=== PATIENT | female | born 1965 | race Caucasian/White ===

== ENCOUNTER 2019-07-25 07:43 | Day surgery (SDC) | payer OTHER ==
[2019-07-20 16:08] VITALS: BMI 23.9
[2019-07-25] MEDS ORDERED: PROPOFOL 20 ML ONE ×3 (08:13)
[2019-07-25 09:56] VITALS: TEMP 97.9
[2019-07-25 11:24] VITALS: BP 127/69; PULSE 70
== END 2019-07-25 10:30 | disposition home or self-care (01) ==
LOC: FASU-ENDO 07:43
PROVIDERS: ATTEND Internal Medicine Gastroenterology
PROC: 0DJD8ZZ Inspection of Lower Intestinal Tract, Via Natural or Artificial Opening Endoscopic (ICD-10-PCS; principal; 2019-07-25 09:26)
DX: Z12.11 Encounter for screening for malignant neoplasm of colon (principal); Z83.71 Family history of colonic polyps; K57.30 Diverticulosis of large intestine without perforation or abscess without bleeding

== ENCOUNTER 2020-05-16 05:16 | Emergency (ER) | payer OTHER ==
[2020-05-16 05:30] VITALS: BP 152/72; PULSE 73; TEMP 98.6; BMI 23.9
--- OUTSIDE RECORDS SUMMARY | 2020-05-16 05:33 | XMS ---
:1965 Author Organization [facility] Support Name Relationship Address Phone UE Unavailable Unavailable Unavailable [facility] Unavailable [address] [place] [address] MUSA GRANT [address] [phone] [place] [address] Re-disclosure Warning The records that you are about to access may contain information from federally- assisted alcohol or drug abuse programs. If such information is present, then the following federally mandated warning applies: This information has been disclosed to you from records protected by federal confidentiality rules (42 CFR part 2). The federal rules prohibit you from making any further disclosure of this information unless further disclosure is expressly permitted by the written consent of the person to whom it pertains or as otherwise permitted by 42 CFR part 2. A general authorization for the release of medical or other information is NOT sufficient for this purpose. The Federal rules restrict any use of the information to criminally investigate or prosecute any alcohol or drug abuse patient.The records that you are about to access may contain highly sensitive health information, the redisclosure of which is protected by Article 27-F of the [facility] Public Health law. If you continue you may haveaccess to information: Regarding HIV / AIDS; Provided by facilities licensed or operated by the [facility] Office of Mental Health; or Provided by the [facility] Office for People With Developmental Disabilities. If such information is present, then the following [facility] mandated warning applies: This information has been disclosed to you from confidential records which are protected by state law. State law prohibits you from making any further disclosure of this information without the specific written consent of the person to whom it pertains, or as otherwise permitted by law. Any unauthorized further disclosure in violation of state law may result in a fine or fci sentence or both. A general authorization for the release of medical or other information is NOT sufficient authorization for further disclosure. Insurance Providers Payer name Policy type Policy ID Covered Covered alliance party's Policy P florence / Coverage alliance party ID relationship to [employer] orm[employer] type [employer] EXCHANGE [id number] [facility] [id number] [facility]
[2020-05-16] MEDS ORDERED: KETOROLAC TROMETHAMINE 30 MG/1 ML VIAL IM ONE (05:52)
[2020-05-16] MEDS ORDERED: KETOROLAC TROMETHAMINE 30 MG/1 ML VIAL ONE (06:00)
--- NOTE | 2020-05-16 06:01 | PDOC ---
History of Present Illness - General Chief Complaint: Pain Stated Complaint: JOINT DISCOMFORT Time Seen by Provider: 05/16/20 05:35 History Source: Patient - History of Present Illness Initial Comments: 05/16/20 05:52 54-year-old female complaining of lower back pain and left-sided sciatica symptoms for the last 3 weeks. Patient reports that symptoms started after doing squats. Patient reports that she took ibuprofen "here and there "over the last 3 weeks with no significant improvement in pain. Patient reports that she has primary care appointment today for the symptoms. Patient reports that she woke up feeling anxious and noted overall body pain. Denies fever/chills, weakness, numbness or tingling to the lower extremity, incontinence of bowel or urine. Past History - Medical History Allergies/Adverse Reactions: Allergies Allergy/AdvReac Type Severity Reaction Status Date / Time cephalexin [From Keflex] AdvReac diarrhea Verified 05/16/20 05:30 Home Medications: Ambulatory Orders Cyclobenzaprine HCl [Flexeril -] 10 mg PO TID PRN #10 tablet 05/16/20 Anemia: No Asthma: No Cancer: No Cardiac Disorders: No CVA: No COPD: No CHF: No Dementia: No Diabetes: No GI Disorders: No Disorders: No HTN: No Hypercholesterolemia: No Liver Disease: No Seizures: No Thyroid Disease: No - Reproductive History Is Patient Now?: No - Psycho-Social/Smoking History Smoking History: Never smoked Have you smoked in the past 12 months: No If you are a former smoker, when did you quit?: 25 y ago Information on smoking cessation initiated: No - Substance Abuse Hx (Audit-C & DAST Scrn) How often the patient has a drink containing alcohol: Never Score: In Men: 4 or > Positive; In Women: 3 or > Positive: 0 Screen Result (Pos requires Nsg. Audit-10AR): Negative In the last yr the pt used illegal drug/Rx for NonMed reason: No Score: Yes response is considered Positive: 0 Screen Result (Positive result requires Nsg. DAST-10): Negative Review of Systems - Review of Systems Able to Perform ROS?: Yes Is the patient limited Hungarian proficient: No Constitutional: No: Symptoms Reported, See HPI, Chills, Diaphoresis, Fever, Loss of Appetite, Malaise, Night Sweats, Weakness, Weight Stable, Unintentional Wgt. Loss, Unexplained wgt Loss, Other Integumentary: Yes: Other Neurological: Yes: Other (Generalized pain) *Physical Exam - Vital Signs Last Vital Signs Temp Pulse Resp BP Pulse Ox 98.6 F 73 16 152/72 100 05/16/20 05:28 05/16/20 05:28 05/16/20 05:28 05/16/20 05:05/16/20 05:28 - Physical Exam General Appearance: Yes: Appropriately Dressed Gastrointestinal/Abdominal: positive: Normal Bowel Sounds, Soft. negative: Tender Musculoskeletal: negative: CVA Tenderness Extremity: positive: Normal Capillary Refill, Normal Inspection, Normal Range of Motion, Other (Able to leg raise. No midline tenderness tenderness patient has left paraspinal area tenderness) Integumentary: positive: Normal Color, Dry, Warm Neurologic: positive: Fully Oriented, Alert, Normal Mood/Affect Medical Decision Making - Medical Decision Making lumbago P: pain meds toradol flexeril ''has PCP follow up same day as ED evaluation. multiple complaints of generalized pain. likely need outpatient workup. patient verbalized understanding. strict return precautions reviewed with patient. Discharge - Discharge Information Problems reviewed: Yes Clinical Impression/Diagnosis: Generalized pain, Lumbar back pain Condition: Stable Disposition: HOME - Additional Discharge Information Prescriptions: Cyclobenzaprine HCl [Flexeril -] 10 mg PO TID PRN #10 tablet PRN Reason: Muscle Spasms - Follow up/Referral Referrals: Ray Garcia [Primary Care Provider] - - Patient Discharge Instructions Patient Printed Discharge Instructions: Low Back Pain Additional Instructions: Do light stretches Take ibuprofen 600 mg every 6 hours as needed for pain. Take Flexeril as prescribed for muscle spasm. Flexeril can make you sleepy, do not drive or operate heavy machinery after taking the medication. Follow-up with an orthopedic doctor if symptoms persist. A referral was given to you today. Return to the emergency room for any worsening symptoms. - Post Discharge Activity Work/Back to School Note: Back to Work
== END 2020-05-16 06:23 | disposition home or self-care (01) ==
LOC: JER 05:16
PROC: 3E023NZ Introduction of Analgesics, Hypnotics, Sedatives into Muscle, Percutaneous Approach (ICD-10-PCS; principal; 2020-05-16)
DX: R52 Pain, unspecified (principal); M54.5 Low back pain
CPT/HCPCS: 99284-25

== ENCOUNTER 2024-07-11 10:39 | Day surgery (SDC) | payer BC ==
[2024-07-07 10:28] VITALS: BMI 22.3
[2024-07-11 11:04] VITALS: TEMP 97.8
[2024-07-11 13:20] VITALS: RESP 18
[2024-07-11 13:38] VITALS: BP 105/75; PULSE 79
== END 2024-07-11 13:30 | disposition home or self-care (01) ==
LOC: FASU-ENDO 10:39
PROVIDERS: ATTEND Internal Medicine Gastroenterology
PROC: 0DJD8ZZ Inspection of Lower Intestinal Tract, Via Natural or Artificial Opening Endoscopic (ICD-10-PCS; principal; 2024-07-11 12:36)
DX: Z12.11 Encounter for screening for malignant neoplasm of colon (principal); K57.30 Diverticulosis of large intestine without perforation or abscess without bleeding; Z86.0109 Personal history of other colon polyps; Z83.719 Family history of colon polyps, unspecified